=== PATIENT | female | born 1955 ===

== ENCOUNTER 2025-02-15 07:00 | Day surgery (SDC) | payer OTHER ==
[~2025-02-15 07:00] MED LIST: CEFAZOLIN SODIUM 1,000 MG VIAL ONE; MICARDIS80 MG; PLAVIX75 MG; PRILOSEC OTC20 MG; SYNTHROID88 MCG
[2025-02-15] MEDS ORDERED: CHLORHEXIDINE GLUCONATE 120 ML BOTTLE TOP ONE (07:07)
[2025-02-15] MEDS ORDERED: GENTAMICIN SULFATE 40 MG/ML VIAL ONE (07:07)
[2025-02-15] MEDS ORDERED: LIDOCAINE HCL 1%/EPINEPHRINE 20ML VIAL IJ ONE (07:07)
[2025-02-15] MEDS ORDERED: MACROBID 100 M100 MG PO (09:39)
[2025-02-15] MEDS ORDERED: TRAM1TAB98 PO (09:40)
== END 2025-02-15 13:00 | disposition home or self-care (01) ==
LOC: CIR.AMB 07:00
PROVIDERS: ATTEND Obstetrics & Gynecology Gynecology
DX: N81.11 Cystocele, midline (principal); N81.5 Vaginal enterocele; Z88.6 Allergy status to analgesic agent